=== PATIENT | female | born 1990 | race Caucasian/White ===

== ENCOUNTER 2017-10-14 03:40 | Emergency (ER) | payer OTHER ==
[2017-10-14] MEDS ORDERED: LIDOCAINE 1% MPF 5 ML VIAL ONE (04:09)
--- NOTE | 2017-10-14 05:29 | ER ---
Nurse's Notes [facility] Name: Edelmira Rollins Age: 26 yrs Sex: Female : 1990 Arrival Date: 10/14/2017 Time: 03:41 Bed 5 Private MD: Myron Raza B Diagnosis: Laceration without foreign body of left thumb without damage to nail Presentation: 10/14 03:51 Presenting complaint: Patient states: she cut her finger while spiralling zucchini bb approx 30 mins ago. Transition of care: patient was not received from another setting of care. Onset of symptoms was October 14, 2017. Care prior to arrival: None. 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 - Social history:: Smoking status: Patient uses tobacco products, denies chronic smoking, but will smoke occasionally, Patient uses alcohol, occasionally. Patient/guardian denies using street drugs. Screenin:56 Abuse screen: Denies threats or abuse. Nutritional screening: No deficits noted. ea Tuberculosis screening: No symptoms or risk factors identified. Fall Risk None identified. Assessment: 03:52 General: Appears in no apparent distress. Behavior is calm, cooperative, appropriate ea for age. Pain: Complains of pain in palmar aspect of distal phalanx of right thumb Quality of pain is described as throbbing. Neuro: Level of Consciousness is awake, alert, obeys commands, Oriented to person, place, time, situation. Cardiovascular: Patient's skin is warm and dry. Respiratory: Airway is patent Respiratory effort is even, unlabored, Respiratory pattern is regular, symmetrical. GI: No signs and/or symptoms were reported involving the gastrointestinal system. : No signs and/or symptoms were reported regarding the genitourinary system. EENT: No signs and/or symptoms were reported regarding the EENT system. Derm: Wound noted palmar aspect of distal phalanx of left thumb Wound is laceration. Musculoskeletal: Range of motion: intact in all extremities. Injury Description: Laceration sustained to palmar aspect of distal phalanx of left thumb is clean, 0.5 to 2.5 cm long, a small amount of bleeding noted at this time. 04:30 Reassessment: Patient and/or family updated on plan of care and expected duration. Pain ea level reassessed. Patient is alert, oriented x 3, equal unlabored respirations, skin warm/dry/pink. 05:02 Reassessment: Patient and/or family updated on plan of care and expected duration. Pain ea level reassessed. Patient is alert, oriented x 3, equal unlabored respirations, skin warm/dry/pink. 05:34 Reassessment: Patient and/or family updated on plan of care and expected duration. Pain ea level reassessed. Patient is alert, oriented x 3, equal unlabored respirations, skin warm/dry/pink. Discharge instructions given to patient, verbalized the understanding of instruction. Vital Signs: 03:53 BP 121 / 78; Pulse 81; Resp 18 S; Temp 98.5(O); Pulse Ox 98% on R/A; Weight 106.59 kg bb (R); Height 6 ft. 0 in. (182.88 cm) (R); Pain 3/10; 04:00 BP 116 / 68; Pulse 76; Resp 18 S; Pulse Ox 100% on R/A; ea 05:02 BP 117 / 81; Pulse 70; Resp 18 S; Pulse Ox 100% ; ea 03:53 Body Mass Index 31.87 (106.59 kg, 182.88 cm) ED Course: 03:41 Patient arrived in ED. es 03:41 Myron Raza MD is Private Physician. es 03:51 Sheron Colby, CATRACHITA is Primary Nurse. ea 03:53 Triage completed. bb 03:53 Arm band placed on Patient placed in an exam room, on a stretcher, on pulse oximetry. bb 03:54 Gee Fishman MD is Attending Physician. gs 03:56 Patient has correct armband on for positive identification. Bed in low position. Call ea light in reach. Side rails up X 1. 05:20 Assist provider with laceration repair on palmar aspect of distal phalanx of left thumb ea that was 2.5 cm. or less using sutures. Set up tray. Performed by Gee Fishman MD Dressed with Neosporin, Patient tolerated well. 05:37 Patient did not have IV access during this emergency room visit. ea Administered Medications: 05:12 Drug: Lidocaine (1 %) 5 mg {Note: administered by provider.} Volume: 5 ml; Route: ea Infiltration; Outcome: 05:28 Discharge ordered by . zak 05:36 Discharged to home ambulatory. ea 05:36 Condition: improved 05:36 Discharge instructions given to patient, Instructed on discharge instructions, follow up and referral plans. Demonstrated understanding of instructions, follow-up care. 05:38 Patient left the ED. ea Signatures: Philly Hidalgo Brenda RN RN Sheron Salinas RN RN Gee Rios MD MD gs Corrections: (The following items were deleted from the chart) 03:56 03:52 Injury Description: Laceration sustained to palmar aspect of distal phalanx of ea left thumb is clean, 0.5 to 2.5 cm long, moderate bleeding noted at this time. ea
--- NOTE | 2017-10-14 05:29 | EDPHYS ---
Physician Documentation [facility] Name: Edelmira Rollins Age: 26 yrs Sex: Female : 1990 Arrival Date: 10/14/2017 Time: 03:41 Bed 5 Private MD: Myron Raza B ED Physician Gee Fishman HPI: 10/14 05:24 This 26 yrs old Female presents to ER via Ambulatory with complaints of gs Finger Injury. 05:24 The complaints affect the palmar aspect of distal phalanx of left thumb. Context: gs resulted from sharp object. Onset: The symptoms/episode began/occurred acutely, just prior to arrival. Associated signs and symptoms: Pertinent negatives: numbness distally. Severity of symptoms: At their worst the symptoms were moderate, in the emergency department the symptoms are unchanged. 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 - Social history:: Smoking status: Patient uses tobacco products, denies chronic smoking, but will smoke occasionally, Patient uses alcohol, occasionally. Patient/guardian denies using street drugs. ROS: 05:24 All other systems are negative. gs Exam: 05:24 Musculoskeletal/extremity: Extremities: laceration, ROM: no acute changes, Pulses: are gs normal with no appreciated deficits, the left hand Sensation intact. 05:24 Skin: injury, laceration(s), the wound is approximately 3.5 cm(s), with a depth of .5 cm(s), of the palmar aspect of distal phalanx of left thumb. 05:24 Neuro: Exam negative for acute changes, motor deficits, sensory deficits. Vital Signs: 03:53 BP 121 / 78; Pulse 81; Resp 18 S; Temp 98.5(O); Pulse Ox 98% on R/A; Weight 106.59 kg bb (R); Height 6 ft. 0 in. (182.88 cm) (R); Pain 3/10; 04:00 BP 116 / 68; Pulse 76; Resp 18 S; Pulse Ox 100% on R/A; ea 05:02 BP 117 / 81; Pulse 70; Resp 18 S; Pulse Ox 100% ; ea 03:53 Body Mass Index 31.87 (106.59 kg, 182.88 cm) bb Laceration: 05:24 Wound Repair of 4cm ( 1.6in ) subcutaneous laceration to palmar aspect of distal gs phalanx of left thumb. Distal neuro/vascular/tendon intact. Anesthesia: Local anesthetic administered with 2 mls of 1% lidocaine. Wound prep: Moderate cleansing. Skin closed with 4 5-0 Prolene using simple sutures and sterile technique. Dressed with 4x4's. Patient tolerated well. MDM: 04:07 Patient medically screened. 05:24 Data reviewed: vital signs, nurses notes. Administered Medications: 05:12 Drug: Lidocaine (1 %) 5 mg {Note: administered by provider.} Volume: 5 ml; Route: ea Infiltration; Disposition: 10/14/17 05:28 Discharged to Home. Impression: Laceration without foreign body of left thumb without damage to nail. - Condition is Stable. - Discharge Instructions: Laceration Care, Adult. - Medication Reconciliation Form, Thank You Letter, Antibiotic Education, Prescription Opioid Use form. - Follow up: Private Physician; When: 7 - 10 days; Reason: Staple/Suture removal. Signatures: Ann-Marie Stewart RN Sheron Messina RN RN ea Starr, Gregory, MD MD
== END 2017-10-14 05:38 | disposition home or self-care (01) ==
LOC: ER 03:40
PROC: 0JQK0ZZ Repair Left Hand Subcutaneous Tissue and Fascia, Open Approach (ICD-10-PCS; principal; 2017-10-14)
DX: S61.012A Laceration without foreign body of left thumb without damage to nail, initial encounter (principal); W26.9XXA Contact with unspecified sharp object(s), initial encounter; Y93.9 Activity, unspecified; Y92.9 Unspecified place or not applicable; Z72.0 Tobacco use
CPT/HCPCS: 99283

== ENCOUNTER 2022-03-17 00:25 | Emergency (ER) | payer OTHER ==
--- OUTSIDE RECORDS SUMMARY | 2022-03-17 00:29 | XMS REPORT | Continuity of Care Document ---
:1990 Author Organization [facility] t Address [address] [place] [address] Care Team Providers Name Role Phone Beth Roman Primary Care Physician EV JOINER Attending Clinician Unavailable Gavin RN, Glenna Attending Clinician Unavailable ANABELLA SULLIVAN Attending Clinician Unavailable Beth Roman Attending Clinician BETH BELL Attending Clinician Unavailable Payers Payer Name Policy Type Policy Number Effective Date Expiration Date S ource Problems Condition Condition Condition Status Onset Resolution Last Treating Co mments Source Name Details Category Date Date Treatment Clinician Date Morbid Morbid Disease Active Univers obesity obesity 6-08 [place] 00 [place] of Branch 40.0-49.9 40.0-49.9 Chronic Chronic Disease Active 2018-07 Univers bilateral bilateral 0-16 ity of thoracic thoracic 00:00: [place] back pain back pain 00 [facility] Branch Abdominal Abdominal Disease Active 2018-07 Uni vers bloating bloating 0-08 ity of 00:00: [address] Change in Change in Disease Active 2018-07 Uni vers bowel bowel 0-08 ity of habits habits 00:00: [address] Seasonal Seasonal Disease Active Unive rs allergic allergic ity of rhinitis rhinitis [facility] Anxiety Anxiety Disease Active Univers ity of [facility] Depression Depression Disease Active U nivers ity of [facility] Allergies, Adverse Reactions, Alerts Allergy Allergy Status Severity Reaction(s) Onset Inactive Treating Comm ents Source Name Type Date Date Clinician NO KNOWN Drug Active Univers ALLERGIE Class ity of S [facility] Social History Social Habit Start Date Stop Date Quantity Comments Source History of Cigarette Smoker Universi ty of tobacco use [facility] Exposure to 2022-01-03 2022-01-13 Not sure University of SARS-CoV-2 00:00:00 09:59:00 [facility] (event) Branch Tobacco use and 2022-01-13 2022-01-13 Smokeless tobacco Un iversity of exposure 00:00:00 00:00:00 non-user [facility] Alcohol intake 2022-01-13 2022-01-13 Current drinker Unive rsity of 00:00:00 00:00:[address] [facility] (finding) [place] Alcohol Comment 2020-07-25 2020-07-25 rare Universit y of 00:00:00 00:00:00 [place] [facility] History SDOH 2020-07-25 2020-07-25 99 University o f Alcohol Frequency 00:00:00 00:00:00 [facility] edical Branch History SDOH 2020-07-25 2020-07-25 99 University o f Alcohol Std 00:00:00 00:00:00 [place] [facility] Branch History SDOH 2020-07-25 2020-07-25 99 University o f Alcohol Binge 00:00:00 00:00:00 [facility] al Branch Sex Ass[birth year] At [birth year] Universit y of 00:00:00 00:00:00 [facility] Smoking Status Start Date Stop Date Source Ex-smoker 2022-01-13 00:00:00 2022-01-13 00:00:00 Universi ty of [facility] Medications Ordered Filled Start Stop Current Ordering Indication Dosage Frequency Signature Comments Components Source Medication Medication Date Date Medication? Clinician (SIG) Name Name escitalopra Yes Univer s m oxalate 7-04 ity of 10 mg 00:00: [place] tablet 00 Medical Branch risperiDONE Yes Univer s 0.5 mg 7-04 ity of tablet 00:00: Medical Branch escitalopra Yes Univer s m oxalate 7-04 ity of 10 mg 00:00: [place] tablet 00 Medical Branch risperiDONE 2021- Yes Univer s 0.5 mg 7-04 ity of tablet 00:00: [facility] Branch escitalopra Yes Univer s m oxalate 7-04 ity of 10 mg 00:00: [place] tablet 00 Medical Branch risperiDONE 0 Yes Univer s 0.5 mg 7-04 ity of tablet 00:00: [place] 00 [facility] Immunizations Ordered Filled Immunization Date Status Comments [facility] e Immunization Name Name Influenza Virus 2021-07-25 Completed Universit y of Vaccine Quad IM, 00:00:00 [place] Me dical Preserv and ABX Branch Free 6 MO-64 YRS Influenza Virus 2021-07-25 Completed Universit y of Vaccine Quad IM, 00:00:00 [place] Me dical Preserv and ABX Branch Free 6 MO-64 YRS Influenza Virus 2021-07-25 Completed Universit y of Vaccine Quad IM, 00:00:00 [facility] dical Preserv and ABX Branch Free 6 MO-64 YRS SARS-COV-2 COVID-19 2021-05-09 Completed Unive rsity of PFIZER VACCINE 00:00:00 [facility] SARS-COV-2 COVID-19 2021-05-09 Completed Unive rsity of PFIZER VACCINE 00:00:00 [facility] SARS-COV-2 COVID-19 2021-05-09 Completed Unive rsity of PFIZER VACCINE 00:00:00 [facility] SARS-COV-2 COVID-19 2021-04-17 Completed Unive rsity of PFIZER VACCINE 00:00:00 [facility] SARS-COV-2 COVID-19 2021-04-17 Completed Unive rsity of PFIZER VACCINE 00:00:00 [facility] SARS-COV-2 COVID-19 2021-04-17 Completed Unive rsity of PFIZER VACCINE 00:00:00 [facility] DTAP 2020-01-18 Completed University of 00:00:00 [facility] DTAP 2020-01-18 Completed University of 00:00:00 [facility] DTAP 2020-01-18 Completed University of 00:00:00 [facility] Influenza Virus 2019-07-11 Completed Universit y of Vaccine Quad .5 mL 00:00:00 [facility] IM 6+ MO Branch Influenza Virus 2019-07-11 Completed Universit y of Vaccine Quad .5 mL 00:00:00 [facility] IM 6+ MO Branch Influenza Virus 2019-07-11 Completed Universit y of Vaccine Quad .5 mL 00:00:00 [facility] 6+ MO Branch Vital Signs Vital Name Observation Time Observation Value Comments Source Systolic blood 2022-01-13 15:11:00 112 mm[Hg] Univer sity [facility] pressure [facility] Diastolic blood 2022-01-13 15:11:00 77 [facility]Hg[facility] Heart rate 2022-01-13 15:11:00 85 /min [facility] Body height 2022-01-13 15:11:00 180.3 cm [facility] Body weight 2022-01-13 15:11:00 131.226 kg [facility] BMI 2022-01-13 15:11:00 40.35 kg/m2 [facility] Oxygen saturation 2022-01-13 15:11:00 100 /min [facility] in Arterial blood Medical Br anch by Pulse oximetry Procedures This patient has no known procedures. Encounters Start End Encounter Admission Attending Care Care Encounter Source Date/Time Date/Time Type Type Clinicians Facility Department ID 2022-07-28 2022-07-28 Outpatient Tavares JOINER [facility] [id number] Univers 13:30:00 13:30:00 EV [id number] [facility] 2022-03-16 2022-03-16 Nurse AZRA Alonso [id number] Univers 00:00:00 00:00:00 Triage Glenna KHANNA [id number] it y of [facility] [id number] Luis as [id number] [address] 2022-02-13 2022-02-13 Outpatient Tavares SULLIVAN [facility] [id number] Univers 13:45:00 13:45:00 ANABELLA [id number] [facility] 2022-02-13 2022-02-13 Outpatient Tavares SULLIVAN [facility] [id number] Univers 13:45:00 13:45:00 ANABELLA [facility] 2022-01-13 2022-01-13 Office Davina [facility] [id number] Univers 10:00:00 10:38:[address] [facility] [id number] it y of [place] [id number] Luis as SUNIL?BLEA [id number] [place] [address] MEDICAL OFFICE BUILDING 2022-01-13 2022-01-13 Outpatient Tavares BELL [facility] [id number] Univers 10:00:00 10:38:36 BETH streeter [facility] Results This patient has no known results.
--- NOTE | 2022-03-17 00:44 | EDPHYS ---
Physician Documentation [facility] Name: Edelmira Rollins Age: 31 yrs Sex: Female : 1990 Arrival Date: 03/17/2022 Time: 00:30 Bed 15 Private MD: ED Physician Luis Antonio Gleason HPI: 03/17 00:51 This 31 yrs old Female presents to ER via Ambulatory with complaints of Ear Pain. snw 00:51 The patient presents with a fullness, pain, swelling, tenderness. The complaints affect snw the right ear. Onset: The symptoms/episode began/occurred gradually, 3 day(s) ago, and became worse and became persistent. Associated signs and symptoms: The patient has no apparent associated signs or symptoms. Severity of symptoms: At their worst the symptoms were moderate severe in the emergency department the symptoms are unchanged. The patient has experienced similar episodes in the past. The patient has not recently seen a physician. pt states [place] the beach and feels that is when her ear became infected.. Historical: - Allergies: 00:42 No Known Allergies; ha1 - Immunization history:: Adult Immunizations up to date. - Social history:: Smoking status: Patient reports the use of cigarette tobacco products, denies chronic smoking, but will smoke occasionally. ROS: 00:51 Constitutional: Negative for fever, chills, and weight loss, Eyes: Negative for injury, snw pain, redness, and discharge, Neck: Negative for injury, pain, and swelling, Cardiovascular: Negative for chest pain, palpitations, and edema, Respiratory: Negative for shortness of breath, cough, wheezing, and pleuritic chest pain, Abdomen/GI: Negative for abdominal pain, nausea, vomiting, diarrhea, and constipation, Back: Negative for injury and pain, : Negative for injury, bleeding, discharge, and swelling, MS/Extremity: Negative for injury and deformity, Skin: Negative for injury, rash, and discoloration, Neuro: Negative for headache, weakness, numbness, tingling, and seizure, Psych: Negative for depression, anxiety, suicide ideation, homicidal ideation, and hallucinations. 00:51 ENT: Positive for ear pain. Exam: 00:50 Constitutional: This is a well developed, well nourished patient who is awake, alert, snw and in no acute distress. Head/Face: Normocephalic, atraumatic. Eyes: Pupils equal round and reactive to light, extra-ocular motions intact. Lids and lashes normal. Conjunctiva and sclera are non-icteric and not injected. Cornea within normal limits. Periorbital areas with no swelling, redness, or edema. Neck: Trachea midline, no thyromegaly or masses palpated, and no cervical lymphadenopathy. Supple, full range of motion without nuchal rigidity, or vertebral point tenderness. No Meningismus. Chest/axilla: Normal chest wall appearance and motion. Nontender with no deformity. No lesions are appreciated. Cardiovascular: Regular rate and rhythm with a normal S1 and S2. No gallops, murmurs, or rubs. Normal PMI, no JVD. No pulse deficits. Respiratory: Lungs have equal breath sounds bilaterally, clear to auscultation and percussion. No rales, rhonchi or wheezes noted. No increased work of breathing, no retractions or nasal flaring. Abdomen/GI: Soft, non-tender, with normal bowel sounds. No distension or tympany. No guarding or rebound. No evidence of tenderness throughout. Back: No spinal tenderness. No costovertebral tenderness. Full range of motion. Skin: Warm, dry with normal turgor. Normal color with no rashes, no lesions, and no evidence of cellulitis. MS/ Extremity: Pulses equal, no cyanosis. Neurovascular intact. Full, normal range of motion. Neuro: Awake and alert, GCS 15, oriented to person, place, time, and situation. Cranial nerves II-XII grossly intact. Motor strength 5/5 in all extremities. Sensory grossly intact. Cerebellar exam normal. Normal gait. Psych: Awake, alert, with orientation to person, place and time. Behavior, mood, and affect are within normal limits. 00:50 ENT: External ear(s): are unremarkable, Ear canal(s): purulent discharge, swelling, that is moderate, of the right canal, Nose: is normal, Mouth: is normal, Voice: is normal. Vital Signs: 00:39 BP 112 / 78; Pulse 97; Resp 16; Temp 98.5; Pulse Ox 100% on R/A; Weight 127.01 kg; ha1 Height 6 ft. (182.88 cm); Pain 7/10; 00:39 Body Mass Index 37.97 (127.01 kg, 182.88 cm) ha1 MDM: 00:35 Patient medically screened. snw 00:50 Data reviewed: vital signs, nurses notes. Data interpreted: Pulse oximetry: on room air snw is 100 %. Interpretation: normal. Counseling: I had a detailed discussion with the patient and/or guardian regarding: the historical points, exam findings, and any diagnostic results supporting the discharge/admit diagnosis, the need for outpatient follow up, to return to the emergency department if symptoms worsen or persist or if there are any questions or concerns that arise at home. Response to treatment: the patient's symptoms have mildly improved after treatment. Special discussion: Based on the history and exam findings, there is no indication for further emergent testing or inpatient evaluation. I discussed with the patient/guardian the need to see the primary care provider for further evaluation of the symptoms. Administered Medications: 00:50 Not Given (Other Intervention Used): Cortisporin (bacitracin-polymix snw X-takziden-toeufkjfnrmfgn) Ointment 1 application Ophthalmic once; right ear 00:56 Drug: Cortisporin (neomycin-polymyxin) Drops 4 drops Route: Otic; Site: right ear; ke1 01:04 Follow up: Response: No adverse reaction; Medication administered at discharge. ke1 00:57 Drug: Ketorolac 60 mg Route: IM; Site: right deltoid; ke1 01:04 Follow up: Response: Medication administered at discharge. ke1 Disposition: 04:12 Co-signature as Attending Physician, Luis Antonio CONCEPCION was immediately available on-site ms3 in the Emergency Department for consultation in the care of the patient. Disposition Summary: 03/17/22 00:44 Discharge Ordered Location: Home snw Condition: Stable snw Diagnosis - Unspecified otitis externa, right ear snw Followup: snw - With: Emergency Department - When: As needed - Reason: Worsening of condition Followup: snw - With: Private Physician - When: 2 - 3 days - Reason: Recheck today's complaints, Continuance of care, Re-evaluation by your physician Discharge Instructions: - Discharge Summary Sheet snw - Ear Drops, Adult snw - Otitis Externa snw Forms: - Medication Reconciliation Form snw - Thank You Letter snw - Antibiotic Education snw - Prescription Opioid Use snw Prescriptions: - Cortisporin-TC 3.3-3-10-0.5 mg/mL Otic Suspension - instill 4 drops by OTIC route every 6 hours; 1 bottle; Refills: 0, Product snw Selection Permitted - Tramadol 50 mg Oral Tablet - take 1 tablet by ORAL route every 8 hours as needed; 12 tablet; Refills: 0, snw Product Selection Permitted Signatures: Saadia Musa, ROTARY DRILLER HELPER-C ROTARY DRILLER HELPER-Csnw Luis Antonio Gleason DO DO ms3 Uli Ignacio, RN RN ke1 Alise Montaño RN RN ha1
--- NOTE | 2022-03-17 00:44 | ER ---
Nurse's Notes [facility] Name: Edelmira Rollins Age: 31 yrs Sex: Female : 1990 Arrival Date: 03/17/2022 Time: 00:30 Bed 15 Private MD: Diagnosis: Unspecified otitis externa, right ear Presentation: 03/17 00:39 Chief complaint: Patient states: I have had this ear ache since yesterday. I have been ha1 taking Tylenol but it is not helping me with the pain. Coronavirus screen: Vaccine status: Patient reports receiving the 2nd dose of the covid vaccine. [employer]. Ebola Screen: No symptoms or risks identified at this time. Initial Sepsis Screen: Does the patient meet any 2 criteria? No. Patient's initial sepsis screen is negative. Does the patient have a suspected source of infection? No. Patient's initial sepsis screen is negative. Risk Assessment: Do you want to hurt yourself or someone else? Patient reports no desire to harm self or others. Onset of symptoms was March 17, 2022. 00:39 Method Of Arrival: Ambulatory ha1 00:39 Acuity: STEPHANIE 4 ha1 Triage Assessment: 00:42 General: Appears in no apparent distress. Behavior is calm, cooperative. Pain: ha1 Complains of pain in ear pain. EENT:. Historical: - Allergies: 00:42 No Known Allergies; ha1 - Immunization history:: Adult Immunizations up to date. - Social history:: Smoking status: Patient reports the use of cigarette tobacco products, denies chronic smoking, but will smoke occasionally. Screenin:40 Abuse screen: Denies threats or abuse. Nutritional screening: No deficits noted. ke1 Tuberculosis screening: No symptoms or risk factors identified. Fall Risk None identified. Assessment: 00:40 Pain: Complains of pain in right ear Pain currently is 7 out of 10 on a pain scale. at ke1 worst was 7 out of 10 on a pain scale. level that patient reports is acceptable is 3 out of 10 on a pain scale. Neuro: Level of Consciousness is awake, alert, Oriented to person, place, time, situation. Respiratory: Respiratory effort is even, unlabored, Respiratory pattern is regular, symmetrical. Derm: Skin is intact, ON R EAR. Vital Signs: 00:39 BP 112 / 78; Pulse 97; Resp 16; Temp 98.5; Pulse Ox 100% on R/A; Weight 127.01 kg; ha1 Height 6 ft. (182.88 cm); Pain 7/10; 00:39 Body Mass Index 37.97 (127.01 kg, 182.88 cm) ha1 ED Course: 00:30 Patient arrived in ED. ag3 00:34 Uli Ignacoi RN is Primary Nurse. ke1 00:35 Saadia Musa FNP-C is PHCP. snw 00:35 Luis Antonio Gleason DO is Attending Physician. snw 00:40 Bed in low position. Call light in reach. ke1 00:42 Triage completed. ha1 00:42 Arm band placed on right wrist. ha1 01:05 No provider procedures requiring assistance completed. Patient did not have IV access ke1 during this emergency room visit. Administered Medications: 00:50 Not Given (Other Intervention Used): Cortisporin (bacitracin-polymix snw [id number]) Ointment 1 application Ophthalmic once; right ear 00:56 Drug: Cortisporin (neomycin-polymyxin) Drops 4 drops Route: Otic; Site: right ear; ke1 01:04 Follow up: Response: No adverse reaction; Medication administered at discharge. ke1 00:57 Drug: Ketorolac 60 mg Route: IM; Site: right deltoid; ke1 01:04 Follow up: Response: Medication administered at discharge. ke1 Medication: 01:05 VIS not applicable for this client. ke1 Outcome: 00:44 Discharge ordered by . snw 01:05 Discharged to home ambulatory. ke1 01:05 Condition: good 01:05 Discharge instructions given to patient. 01:05 Patient left the ED. ke1 Signatures: Saadia Musa FNP-C FNP-Dionne Chavez ag3 Uli Ignacio RN RN ke1 Alise Montaño RN RN ha1
[2022-03-17] MEDS ORDERED: NEOMY/POLY/HC 1% OTIC DROPS ONE (00:57)
[2022-03-17] MEDS ORDERED: KETOROLAC 30 MG/ML INJ ONE (00:57)
[2022-03-17 03:59] VITALS: BP 112/78; TEMP 98.5; O2SAT 100
== END 2022-03-17 01:05 | disposition home or self-care (01) ==
LOC: ER 00:25
DX: H60.91 Unspecified otitis externa, right ear (principal); F17.210 Nicotine dependence, cigarettes, uncomplicated
CPT/HCPCS: 96372; 99283

== ENCOUNTER 2024-06-06 12:34 | Emergency (ER) | payer OTHER ==
--- OUTSIDE RECORDS SUMMARY | 2024-06-06 12:39 | XMS REPORT | Continuity of Care Document ---
Author Name Unknown Address [address] [facility] [address] [place] [address] [facility] [address] [facility]. [address] [place] [address] Care Team Providers Care Category Consultant Name Role Phone BETH GHOSH Primary Care Physician Unavailab VINNY Orourke Attending Clinician Unavailable SIMON HUNTER Attending Clinician UnavailGISELE Rader Attending Clinician UnaDIVINE Regan Attending Clinician Unavailable DIMITRI CATHLEEN-ANNE Attending Clinician Unavailable AZRA ISRAEL Attending Clinician Unavailable BETH BOLDEN Attending Clinician Unavailab radha DE SANTIAGO Attending Clinician Unavailable DIPIKA CROW Attending Clinician Unavailable BETH PATEL Attending Clinician Unavailab RENEE Ham Attending Clinician Unavailable RG AGUILAR Attending Clinician Unavailable FELIPE HOYT Attending Clinician UnavailFELIPE Lopez Attending Clinician UnavailEarnestine Hernández Attending Clinician [phone] Doctor Unassigned, [place] Attending Clinician U EARNESTINE Pena Attending Clinician Unavailable Denis Copeland MD Attending Clinician [phone] Unknown, Attending Attending Clinician Unavailab DENIS Beltran Attending Clinician Unavailable Renee Joiner PA-C Attending Clinician [phone] Glenna Alonso RN Attending Clinician Unavailable ANABELLA SULLIVAN Attending Clinician Unavailable BETH GHOSH Attending Clinician Unavailable Beth Roman Attending Clinician [phone], [facility] Attending Clinician Unavailable Bon DOMÍNGUEZ, Madalyn Lawrence Attending Clinician UnavailNelly Redding Attending Clinician NELLY REDDING Attending Clinician UnavailNELL Rangel Attending Clinician Unavailable KAIT DIETRICH Attending Clinician Unavailable KAIT DIETRICH Admitting Clinician Unavailable Payers Payer Name Policy Type Policy Number Effective Date Expirati on Date Source [employer] [id number] 2019 00:00:00 [facility] [id number] 2019 00:00:00 [facility] HORACIO MARTINO COPAY FOCUS 9 [id number] 2023 00:00:00 [facility] HORACIO 1 [id number] 2023 00:00:00 [place]ICA[place] [id number] 2019 00:00:00 Problems Condition Name Condition Details Condition Category Status Onset Date Resolution Date Last Treatment Date Treating Clinician Comments Source Well adult exam Well adult exam Disease Active 09-09 00:00: 00 Mana marquez Family history of diabetes mellitus Family history of diabetes mellitus Disease Active 09-09 00:00: 00 Mana marquez Class 3 severe obesity due to excess calories without serious comorbidit y with body mass index (BMI) of 40.0 to 44.9 in adult Class 3 severe obesity due to excess calories without serious comorbidit y with body mass index (BMI) of 40.0 to 44.9 in adult Disease Active 09-09 00:00: 00 Mana marquez Missed menses Missed menses Disease Active 10-29 00:00: 00 [facility] PMDD (premenstr ual dysphoric disorder) PMDD (premenstr ual dysphoric disorder) Disease Active 10-29 00:00: 00 [facility] BMI 40.0-44.9, adult BMI 40.0-44.9, adult Disease Active 12-11 00:00: 00 [facility] Chronic bilateral thoracic back pain Chronic bilateral thoracic back pain Disease Active 2018-07 0-16 00:00: 00 [facility] Abdominal bloating Abdominal bloating Disease Active 2018-07 008 00:00: 00 [facility] Change in bowel habits Change in bowel habits Disease Active 2018-07 008 00:00: 00 [facility] Change in bowel habits Change in bowel habits Disease Active 2018-07 008 00:00: 00 [facility] Seasonal allergic rhinitis Seasonal allergic rhinitis Disease Active [facility] Anxiety Anxiety Disease Active [facility] Depression Depression Disease Active [facility] Allergies, Adverse Reactions, Alerts Allergy Name Allergy Type Status Severity Reaction(s) Onset Date Inactive Date Treating Clinician Comments Source NO KNOWN ALLERGIE S Drug Class Active [facility] Social History Social Habit Start Date Stop Date Quantity Comments Source Sexual orientation 2023-07-28 15:58:27 Mana Bill - External Gender identity [facility] Tobacco use and exposure 2024-02-10 00:00:00 2024-02-10 00:00:00 Smokeless tobacco non-user Mana Bill - External Alcoholic beverage intake 2024-02-10 00:00:00 2024-02-10 00:00:00 Current drinker of alcohol (finding) Mana Bill - External History of Social function 2024-02-10 00:00:00 2024-02-10 00:00:00 Mana Bill - External Alcohol intake 2023-09-10 00:00:00 2023-09-10 00:00:00 Current drinker of alcohol (finding) Mana Bill - External Alcohol Comment 2023-07-31 00:00:00 2023-07-31 00:00:00 1 time a month Mana Bill - External Exposure to SARS-CoV-2 (event) 2022-10-19 00:00:00 2022-10-29 10:24:00 Not sure [facility] History SDOH Social Connections Phone 2022-09-19 00:00:00 2022-09-19 00:00:00 4 [facility] History SDOH Social Connections Get Together 2022-09-19 00:00:00 2022-09-19 00:00:00 2 [facility] History SDOH Social Connections Uatsdin 2022-09-19 00:00:00 2022-09-19 00:00:00 98 [facility] SDOH Social Connections Membership 2022-09-19 00:00:00 2022-09-19 00:00:00 2 [facility] SDOH Social Connections Meetings 2022-09-19 00:00:00 2022-09-19 00:00:00 98 [facility] SDOH Social Connections Living 2022-09-19 00:00:00 2022-09-19 00:00:00 5 [facility] SDOH Physical Activity DPW 2022-09-19 00:00:00 2022-09-19 00:00:00 2 [facility] SDOH Physical Activity MPS 2022-09-19 00:00:00 2022-09-19 00:00:00 3 [facility] SDOH Stress 2022-09-19 00:00:00 2022-09-19 00:00:00 2 [facility] SDOH Financial 2022-09-19 00:00:00 2022-09-19 00:00:00 5 [facility] SDOH Food Worry 2022-09-19 00:00:00 2022-09-19 00:00:00 1 [facility] History SDOH Food Scarcity 2022-09-19 00:00:00 2022-09-19 00:00:00 1 [facility] History SDOH Transport Med 2022-09-19 00:00:00 2022-09-19 00:00:00 2 [facility] SDOH Transport Non-Med 2022-09-19 00:00:00 2022-09-19 00:00:00 2 [facility] History SDOH Housing Unable to Pay 2022-09-19 00:00:00 2022-09-19 00:00:00 2 [facility] History SDOH Housing Places Lived 2022-09-19 00:00:00 2022-09-19 00:00:00 1 [facility] History SDOH Housing Homeless Last Year 2022-09-19 00:00:00 2022-09-19 00:00:00 2 [facility] History SDOH Alcohol Frequency 2022-09-19 00:00:00 2022-09-19 00:00:00 2 [facility] History SDOH Alcohol Std Drinks 2022-09-19 00:00:00 2022-09-19 00:00:00 1 [facility] History SDOH Alcohol Binge 2022-09-19 00:00:00 2022-09-19 00:00:00 1 [facility] History of tobacco use 2021-09-03 00:00:00 Cigarette Smoker [facility] Sex assigned at 1990 00:00:00 1990 00:00:00 Binta Layton Smoking Status Start Date Stop Date Source Tobacco smoking consumption unknown Mana Layton Never smoked tobacco Mana Layton Occasional tobacco smoker 2022-07-28 00:00:00 [facility] Ex-smoker 2022-01-13 00:00:00 2022-01-13 00:00:00 [facility] Medications Ordered Medication Name Filled Medication Name Start Date Stop Date Current Medication? Ordering Clinician Indication Dosage Frequency Signature (SIG) Comments Components Source Fluoxetine HCl (PROzac) 10 MG oral Capsule 02-09 00:00: 00 03-12 04:59 :00 No [id number] 20mg QD Take 2 capsules (20 mg total) by mouth daily. Mana marquez Topiramate 25 MG oral Tablet 01-28 00:00: 00 Yes [id number] 104 For first week take 1 tablet at night then increase to one twice a day. Mana marquez Valacyclovi r HCl 1 g oral Tablet 01-08 00:00: 00 01-16 04:59 :00 No [id number] 1000mg Q.[id number] 3D Take 1 tablet (1,000 mg total) by mouth 3 times daily for 7 days. Mana marquez Sulfacetami de Sodium, Acne, 10 % apply externally Lotion 10-29 00:00: 01-08 00:00 :00 No Apply twice a day to break-out prone areas on cheeks / jaw. Mana marquez Escitalopra m Oxalate 10 MG oral Tablet 10-29 00:00: 00 01-08 00:00 :00 No [id number] 10mg QD Take 1 tablet (10 mg total) by mouth daily. Mana marquez hydrOXYzine HCl 25 MG oral Tablet 10-29 00:00: 00 01-08 00:00 :00 No [id number] 25mg Q.[id number] 3D Take 1 tablet (25 mg total) by mouth 3 times daily as needed for anxiety. Mana marquez Amoxicillin -Pot Clavulanate 875-125 MG oral Tablet 07-25 00:00: 00 08-02 05:59 :00 No [id number] 1{tbl} Take 1 tablet by mouth 2 times daily for 7 days. Mana marquez SERTRALINE 50 mg tablet 11-25 00:00: 00 Yes [id number] TAKE 1 TABLET BY MOUTH EVERY DAY IN THE MORNING [facility] drospirenon e-ethinyl estradioL (LORA, 28,) 3-0.02 mg per tablet 10-29 00:00: 00 Yes [id number] 1{tbl} Take 1 tablet by mouth in the morning. [facility] SERTraline (ZOLOFT) 50 mg tablet 10-29 00:00: 00 11-25 00:00 :00 No [id number] 50mg Take 1 tablet by mouth in the morning. [facility] neomycin-po lymyxin-hyd rocortisone otic solution 3-14 00:00: 00 10-29 00:00 :00 No [id number] 4[drp] Place 4 Drops in right ear 4 (four) times daily. [facility] SERTraline (ZOLOFT) 25 mg tablet 23 00:00: 00 10-29 00:00 :00 No [id number] 25mg Take 1 tablet by mouth in the morning. [facility] risperiDONE 0.5 mg tablet 01-06 00:00: 00 09-19 00:00 :00 No [facility] escitalopra m oxalate 10 mg tablet 01-06 00:00: 00 07-28 00:00 :00 No [facility] Immunizations Ordered Immunization Name Filled Immunization Name Date Status Comments Source Influenza Virus Vaccine Quad IM, Preserv and ABX Free 6 MO-64 YRS 2021-07-25 00:00:00 Completed [facility] Influenza Virus Vaccine Quad IM, Preserv and ABX Free 6 MO-64 YRS 2021-07-25 00:00:00 Completed [facility] Influenza Virus Vaccine Quad IM, Preserv and ABX Free 6 MO-64 YRS 2021-07-25 00:00:00 Completed [facility] Influenza Virus Vaccine Quad IM, Preserv and ABX Free 6 MO-64 YRS 2021-07-25 00:00:00 Completed [facility] Influenza Virus Vaccine Quad IM, Preserv and ABX Free 6 MO-64 YRS 2021-07-25 00:00:00 Completed [facility] Influenza Virus Vaccine Quad IM, Preserv and ABX Free 6 MO-64 2021-07-25 00:00:00 Completed [facility] Influenza Virus Vaccine Quad IM, Preserv and ABX Free 6 MO-64 2021-07-25 00:00:00 Completed [facility] Influenza Virus Vaccine Quad IM, Preserv and ABX Free 6 MO-64 YRS 2021-07-25 00:00:00 Completed [facility] Influenza Virus Vaccine Quad IM, Preserv and ABX Free 6 MO-64 YRS 2021-07-25 00:00:00 Completed [facility] Influenza Virus Vaccine Quad IM, Preserv and ABX Free 6 MO-64 2021-07-25 00:00:00 Completed [facility] Influenza Virus Vaccine Quad IM, Preserv and ABX Free 6 MO-64 2021-07-25 00:00:00 Completed [facility] Influenza Virus Vaccine Quad IM, Preserv and ABX Free 6 MO-64 2021-07-25 00:00:00 Completed [facility] Influenza Virus Vaccine Quad IM, Preserv and ABX Free 6 MO-64 YRS 2021-07-25 00:00:00 Completed [facility] SARS-COV-2 COVID-19 PFIZER VACCINE 2021-05-09 00:00:00 Completed [facility] SARS-COV-2 COVID-19 PFIZER VACCINE 2021-05-09 00:00:00 Completed [facility] SARS-COV-2 COVID-19 PFIZER VACCINE 2021-05-09 00:00:00 Completed [facility] SARS-COV-2 COVID-19 PFIZER VACCINE 2021-05-09 00:00:00 Completed [facility] SARS-COV-2 COVID-19 PFIZER VACCINE 2021-05-09 00:00:00 Completed [facility] SARS-COV-2 COVID-19 PFIZER VACCINE 2021-05-09 00:00:00 Completed [facility] SARS-COV-2 COVID-19 PFIZER VACCINE 2021-05-09 00:00:00 Completed [facility] SARS-COV-2 COVID-19 PFIZER VACCINE 2021-05-09 00:00:00 Completed [facility] SARS-COV-2 COVID-19 PFIZER VACCINE 2021-05-09 00:00:00 Completed [facility] SARS-COV-2 COVID-19 PFIZER VACCINE 2021-05-09 00:00:00 Completed [facility] SARS-COV-2 COVID-19 PFIZER VACCINE 2021-05-09 00:00:00 Completed [facility] SARS-COV-2 COVID-19 PFIZER VACCINE 2021-05-09 00:00:00 Completed [facility] SARS-COV-2 COVID-19 PFIZER VACCINE 2021-05-09 00:00:00 Completed [facility] SARS-COV-2 COVID-19 PFIZER VACCINE 2021-04-17 00:00:00 Completed [facility] SARS-COV-2 COVID-19 PFIZER VACCINE 2021-04-17 00:00:00 Completed [facility] SARS-COV-2 COVID-19 PFIZER VACCINE 2021-04-17 00:00:00 Completed [facility] SARS-COV-2 COVID-19 PFIZER VACCINE 2021-04-17 00:00:00 Completed [facility] SARS-COV-2 COVID-19 PFIZER VACCINE 2021-04-17 00:00:00 Completed [facility] SARS-COV-2 COVID-19 PFIZER VACCINE 2021-04-17 00:00:00 Completed [facility] SARS-COV-2 COVID-19 PFIZER VACCINE 2021-04-17 00:00:00 Completed [facility] SARS-COV-2 COVID-19 PFIZER VACCINE 2021-04-17 00:00:00 Completed [facility] SARS-COV-2 COVID-19 PFIZER VACCINE 2021-04-17 00:00:00 Completed [facility] SARS-COV-2 COVID-19 PFIZER VACCINE 2021-04-17 00:00:00 Completed [facility] SARS-COV-2 COVID-19 PFIZER VACCINE 2021-04-17 00:00:00 Completed [facility] SARS-COV-2 COVID-19 PFIZER VACCINE 2021-04-17 00:00:00 Completed [facility] SARS-COV-2 COVID-19 PFIZER VACCINE 2021-04-17 00:00:00 Completed [facility] DTAP 2020-01-18 00:00:00 Completed [facility] DTAP 2020-01-18 00:00:00 Completed [facility] DTAP 2020-01-18 00:00:00 Completed [facility] DTAP 2020-01-18 00:00:00 Completed [facility] DTAP 2020-01-18 00:00:00 Completed [facility] DTAP 2020-01-18 00:00:00 Completed [facility] DTAP 2020-01-18 00:00:00 Completed [facility] DTAP 2020-01-18 00:00:00 Completed [facility] DTAP 2020-01-18 00:00:00 Completed [facility] DTAP 2020-01-18 00:00:00 Completed [facility] DTAP 2020-01-18 00:00:00 Completed [facility] DTAP 2020-01-18 00:00:00 Completed [facility] DTAP 2020-01-18 00:00:00 Completed [facility] Influenza Virus Vaccine Quad .5 mL IM 6+ MO 2019-07-11 00:00:00 Completed [facility] Influenza Virus Vaccine Quad .5 mL IM 6+ MO 2019-07-11 00:00:00 Completed [facility] Influenza Virus Vaccine Quad .5 mL IM 6+ MO 2019-07-11 00:00:00 Completed [facility] Influenza Virus Vaccine Quad .5 mL IM 6+ MO 2019-07-11 00:00:00 Completed [facility] Influenza Virus Vaccine Quad .5 mL IM 6+ MO 2019-07-11 00:00:00 Completed [facility] Influenza Virus Vaccine Quad .5 mL IM 6+ MO 2019-07-11 00:00:00 Completed [facility] Influenza Virus Vaccine Quad .5 mL IM 6+ MO 2019-07-11 00:00:00 Completed [facility] Influenza Virus Vaccine Quad .5 mL IM 6+ MO 2019-07-11 00:00:00 Completed [facility] Influenza Virus Vaccine Quad .5 mL IM 6+ MO 2019-07-11 00:00:00 Completed [facility] Influenza Virus Vaccine Quad .5 mL IM 6+ MO 2019-07-11 00:00:00 Completed [facility] Influenza Virus Vaccine Quad .5 mL IM 6+ MO 2019-07-11 00:00:00 Completed [facility] Influenza Virus Vaccine Quad .5 mL IM 6+ MO 2019-07-11 00:00:00 Completed [facility] Influenza Virus Vaccine Quad .5 mL IM 6+ MO 2019-07-11 00:00:00 Completed [facility] Influenza Virus Vaccine Quad IM, Preserv and ABX Free 6 MO-64 YRS 2018-06-22 00:00:00 Completed [facility] Influenza Virus Vaccine Quad IM, Preserv and ABX Free 6 MO-64 YRS 2018-06-22 00:00:00 Completed [facility] Influenza Virus Vaccine Quad IM, Preserv and ABX Free 6 MO-64 YRS 2018-06-22 00:00:00 Completed [facility] Influenza Virus Vaccine Quad IM, Preserv and ABX Free 6 MO-64 YRS 2018-06-22 00:00:00 Completed [facility] Influenza Virus Vaccine Quad IM, Preserv and ABX Free 6 MO-64 YRS 2018-06-22 00:00:00 Completed [facility] Influenza Virus Vaccine Quad IM, Preserv and ABX Free 6 MO-64 YRS 2018-06-22 00:00:00 Completed [facility] Influenza Virus Vaccine Quad IM, Preserv and ABX Free 6 MO-64 YRS 2018-06-22 00:00:00 Completed [facility] Influenza Virus Vaccine Quad IM, Preserv and ABX Free 6 MO-64 YRS 2018-06-22 00:00:00 Completed [facility] Influenza Virus Vaccine Quad IM, Preserv and ABX Free 6 MO-64 YRS 2018-06-22 00:00:00 Completed [facility] Influenza Virus Vaccine Quad IM, Preserv and ABX Free 6 MO-64 YRS 2018-06-22 00:00:00 Completed [facility] Influenza Virus Vaccine Quad IM, Preserv and ABX Free 6 MO-64 YRS 2018-06-22 00:00:00 Completed [facility] TDAP 2017-10-14 00:00:00 Completed [facility] TDAP 2017-10-14 00:00:00 Completed [facility] TDAP 2017-10-14 00:00:00 Completed [facility] TDAP 2017-10-14 00:00:00 Completed [facility] TDAP 2017-10-14 00:00:00 Completed [facility] TDAP 2017-10-14 00:00:00 Completed [facility] TDAP 2017-10-14 00:00:00 Completed [facility] TDAP 2017-10-14 00:00:00 Completed [facility] TDAP 2017-10-14 00:00:00 Completed [facility] TDAP 2017-10-14 00:00:00 Completed [facility] TDAP 2017-10-14 00:00:00 Completed [facility] Tdap- (Boostrix, Adacel) Unknown Completed Mana Bill - External DTaP Unknown Completed Mana velázquez - External Covid-19 Vaccine ([employer]), Mrna-lnp, Michael Protein, Pf, 30mcg/0.3ml,IM Unknown Completed Mana encarnacion - External Influenza, Injectable, Mdck, Preservative Free, Quadrivalent Unknown Completed Mana Seybold - External Influenza, Injectable, Mdck, Preservative Free, Quadrivalent Unknown Completed Mana Rigginsold - External Influenza Virus Vaccine, No Preserv, age 6 months and up Unknown Completed Mana Rigginsold - External Tdap- (Boostrix, Adacel) Unknown Completed Mana Rigginsold - External DTaP Unknown Completed Mana Se bold - External Covid-19 Vaccine ([employer]), Mrna-lnp, Michael Protein, Pf, 30mcg/0.3ml,IM Unknown Completed Mana Rigginsol d - External Influenza, Injectable, Mdck, Preservative Free, Quadrivalent Unknown Completed Mana Seybold - External Influenza, Injectable, Mdck, Preservative Free, Quadrivalent Unknown Completed Mana Rigginsold - External Influenza Virus Vaccine, No Preserv, age 6 months and up Unknown [facility]- (Boostrix, Adacel) Unknown Completed Mana old - External DTaP Unknown Completed [facility] bold - External Covid-19 Vaccine ([employer]), Mrna-lnp, Michael Protein, Pf, 30mcg/0.3ml,IM Unknown Completed Mana Odomol d - External Influenza, Injectable, Mdck, Preservative Free, Quadrivalent Unknown Completed Mana Rigginsybold - External Influenza, Injectable, Mdck, Preservative Free, Quadrivalent Unknown Completed Mana Rigginsold - External Influenza Virus Vaccine, No Preserv, age 6 months and up Unknown Completed [facility] - External Tdap- (Boostrix, Adacel) Unknown Completed Mana Rigginsold - External DTaP Unknown Completed [facility] bold - External Covid-19 Vaccine ([employer]), Mrna-lnp, Michael Protein, Pf, 30mcg/0.3ml,IM Unknown Completed Mana Odomol d - External Influenza, Injectable, Mdck, Preservative Free, Quadrivalent Unknown Completed Mana Seybold - External Influenza, Injectable, Mdck, Preservative Free, Quadrivalent Unknown Completed Mana Rigginsold - External Influenza Virus Vaccine, No Preserv, age 6 months and up Unknown Completed Mana old - External Tdap- (Boostrix, Adacel) Unknown Completed Mana ybold - External DTaP Unknown Completed [facility] bold - External Covid-19 Vaccine ([employer]), Mrna-lnp, Michael Protein, Pf, 30mcg/0.3ml,IM Unknown Completed Mana Odomol d - External Influenza, Injectable, Mdck, Preservative Free, Quadrivalent Unknown Completed Mana Seybold - External Influenza, Injectable, Mdck, Preservative Free, Quadrivalent Unknown Completed Mana Rigginsold - External Influenza Virus Vaccine, No Preserv, age 6 months and up Unknown Completed Mana Seold - External Tdap- (Boostrix, Adacel) [facility] Com[facility] Mana Se bold - External Covid-19 Vaccine ([employer]), Mrna-lnp, Michael Protein, Pf, 30mcg/0.3ml,IM Unknown Completed Mana Odomol d - External Influenza, Injectable, Mdck, Preservative Free, Quadrivalent Unknown Completed Mana Rigginsold - External Influenza, Injectable, Mdck, Preservative Free, Quadrivalent Unknown [facility] Influenza Virus Vaccine, No Preserv, age 6 months and up Unknown [facility]- (Boostrix, Adacel) Unknown Completed [facility] - External DTaP Unknown Completed [facility] bold - External Covid-19 Vaccine ([facility]), Mrna-lnp, Michael Protein, Pf, 30mcg/0.3ml,IM Unknown Completed Mana Odomol d - External Influenza, Injectable, Mdck, Preservative Free, Quadrivalent Unknown [facility] Influenza, Injectable, Mdck, Preservative Free, Quadrivalent Unknown Completed [facility] - External Influenza Virus Vaccine, No Preserv, age 6 months and up Unknown Completed [facility] - External Influenza Virus Vaccine Quad .5 mL IM 6+ MO (FLUZONE/FLULAVAL/F LUARIX) Unknown Completed [facility] Influenza Virus Vaccine Quad IM, Preserv and ABX Free 6 MO-64 YRS (FLUCELVAX) Unknown Completed [facility] DTAP Unknown Completed [facility] SARS-COV-2 COVID-19 PFIZER VACCINE Unknown Completed [facility] TDAP Unknown Completed [facility] Influenza Virus Vaccine Quad .5 mL IM 6+ MO (FLUZONE/FLULAVAL/F LUARIX) Unknown Completed [facility] Influenza Virus Vaccine Quad IM, Preserv and ABX Free 6 MO-64 YRS (FLUCELVAX) Unknown Completed [facility] DTAP Unknown Completed [facility] SARS-COV-2 COVID-19 PFIZER VACCINE Unknown Completed [facility] TDAP Unknown Completed [facility] Vital Signs Vital Name Observation Time Observation Value Comments S ource Systolic blood pressure 2024-02-10 20:04:00 109 mm[Hg] Mana Seybo ld - External Diastolic blood pressure 2024-02-10 20:04:00 68 mm[Hg] Mana Seybo ld - External Heart rate 2024-02-10 20:04:00 80 /min Kelse y Seybold - External Respiratory rate 2024-02-10 20:04:00 16 /min Mana Seybold - External Body height 2024-02-10 20:04:00 182.9 cm Diamante ey Seybold - External Body weight 2024-02-10 20:04:00 140.615 kg Diamante ey Seybold - External BMI 2024-02-10 20:04:00 42.04 kg/m2 Diamante ey Seybold - External Systolic blood pressure 2024-01-29 20:20:00 122 mm[Hg] Mana Seybo ld - External Diastolic blood pressure 2024-01-29 20:20:00 67 mm[Hg] Mana Seybo ld - External Heart rate 2024-01-29 20:20:00 85 /min Kelse y Seybold - External Body temperature 2024-01-29 20:20:00 36.61 Katelyn Mana Seybold - External Respiratory rate 2024-01-29 20:20:00 16 /min Mana Seybold - External Body height 2024-01-29 20:20:00 182.9 cm Diamante ey Seybold - External Body weight 2024-01-29 20:20:00 141.976 kg Diamante ey Seybold - External BMI 2024-01-29 20:20:00 42.45 kg/m2 Diamante ey Seybold - External Oxygen saturation in Arterial blood by Pulse oximetry 2024-01-29 20:20:00 100 /min Mana Seybo ld - External Systolic blood pressure 2023-09-10 22:07:00 116 mm[Hg] Mana Odomo ld - External Diastolic blood pressure 2023-09-10 22:07:00 68 mm[Hg] Mana Rigginsybo ld - External Heart rate 2023-09-10 22:07:00 94 /min Bobbyse y Seybold - External Respiratory rate 2023-09-10 22:07:00 16 /min Mana Rigginsybold - External Body height 2023-09-10 22:07:00 182.9 cm Diamante ey Seybold - External Body weight 2023-09-10 22:07:00 143.337 kg Diamante ey Seybold - External BMI 2023-09-10 22:07:00 42.86 kg/m2 Diamante brewer Seybold - External Oxygen saturation in Arterial blood by Pulse oximetry 2023-09-10 22:07:00 99 /min Mana Odomo ld - External Systolic blood pressure 2023-07-31 20:58:00 112 mm[Hg] Mana Rigginsybo ld - External Diastolic blood pressure 2023-07-31 20:58:00 66 mm[Hg] Mana Odomo ld - External Heart rate 2023-07-31 20:58:00 89 /min Iva pearl Seybold - External Body temperature 2023-07-31 20:58:00 36.72 Katelyn Mana Rigginsybold - External Respiratory rate 2023-07-31 20:58:00 14 /min Mana Rigginsybold - External Body height 2023-07-31 20:58:00 182.9 cm Diamante brewer Seybold - External Body weight 2023-07-31 20:58:00 139.708 kg Diamante brewer Seybold - External BMI 2023-07-31 20:58:00 41.77 kg/m2 Diamante ey Seybold - External Systolic blood pressure 2022-10-29 18:08:00 118 mm[Hg] [facility] Diastolic blood pressure 2022-10-29 18:08:00 74 mm[Hg] [facility] Heart rate 2022-10-29 18:08:00 92 /min [facility] Body temperature 2022-10-29 18:08:00 36.72 Katelyn [facility] Respiratory rate 2022-10-29 18:08:00 18 /min [facility] Body height 2022-10-29 18:08:00 182.9 cm [facility] 2022-10-29 18:08:00 137.939 kg [facility] BMI 2022-10-29 18:08:00 41.24 kg/m2 [facility] Systolic blood pressure 2022-09-19 13:56:00 114 mm[Hg] [facility] Diastolic blood pressure 2022-09-19 13:56:00 76 mm[Hg] [facility] Heart rate 2022-09-19 13:56:00 80 /min [facility] height 2022-09-19 13:56:00 182.9 cm [facility] Body weight 2022-09-19 13:56:00 137.667 kg [facility] BMI 2022-09-19 13:56:00 41.16 kg/m2 [facility] Oxygen saturation in Arterial blood by Pulse oximetry 2022-09-19 13:56:00 100 /min [facility] Systolic blood pressure 2022-09-16 19:03:00 113 mm[Hg] [facility] Diastolic blood pressure 2022-09-16 19:03:00 75 mm[Hg] [facility] Heart rate 2022-09-16 19:03:00 92 /min [facility] Body temperature 2022-09-16 19:03:00 36.83 Katelyn [facility] Respiratory rate 2022-09-16 19:03:00 18 /min [facility] Body height 2022-09-16 19:03:00 182.9 cm [facility] weight 2022-09-16 19:03:00 138.971 kg [facility] BMI 2022-09-16 19:03:00 41.55 kg/m2 [facility] Oxygen saturation in Arterial blood by Pulse oximetry 2022-09-16 19:03:00 98 /min [facility] Systolic blood pressure 2022-07-28 19:35:00 100 mm[Hg] [facility] Diastolic blood pressure 2022-07-28 19:35:00 68 mm[Hg] [facility] Heart rate 2022-07-28 19:35:00 93 /min Unive [facility] Body temperature 2022-07-28 19:35:00 36.72 Katelyn [facility] Respiratory rate 2022-07-28 19:35:00 20 /min [facility] Body height 2022-07-28 19:35:00 180.3 cm [facility] Body weight 2022-07-28 19:35:00 141.341 kg [facility] BMI 2022-07-28 19:35:00 43.46 kg/m2 [facility] Systolic blood pressure 2022-01-13 15:11:00 112 mm[Hg] [facility] Diastolic blood pressure 2022-01-13 15:11:00 77 mm[Hg] [facility] Heart rate 2022-01-13 15:11:00 85 /min Unive [facility] Body height 2022-01-13 15:11:00 180.3 cm [facility] Body weight 2022-01-13 15:11:00 131.226 kg [facility] BMI 2022-01-13 15:11:00 40.35 kg/m2 [facility] Oxygen saturation in Arterial blood by Pulse oximetry 2022-01-13 15:11:00 100 /min [facility] Procedures Procedure Date / Time Performed Performing Clinician Source CONSENT FOR CONTRACEPTION 2022-10-29 05:01:00 Doctor Unassigned, [place] [facility] POCT TEST 2022-10-29 00:00:00 Tori Hoyt [facility] PATIENT FINANCIAL POLICY 2022-09-16 18:59:12 Doctor Unassigned, [place] [facility] ASSIGNMENT OF BENEFITS 2022-07-28 19:08:50 Docto r Unassigned, [place] [facility] Encounters Start Date/Time End Date/Time Encounter Type Admission Type Attending Clinicians Care Facility Care Department Encounter ID Source 2021-05-03 01:02:02 Outpatient P [facility] [id number] [facility] 2024-08-15 14:30:00 2024-08-15 14:30:00 Outpatient VINNY ERICKSON [id number] [facility] 2024-05-02 15:00:00 2024-05-02 15:00:00 Outpatient VINNY ERICKSON [id number] [facility] 2024-03-01 00:00:00 2024-03-01 00:00:00 Outpatient SIMON HUNTER [id number] [facility] 2024-02-20 00:00:00 2024-02-20 00:00:00 Outpatient SIMON HUNTER [id number] [facility] 2024-02-10 15:15:00 2024-02-10 15:15:00 Outpatient SIMON HUNTER [id number] [facility] 2024-01-29 15:30:00 2024-01-29 15:30:00 Outpatient [facility]ISE[facility] REDDING [id number] [facility] 2024-01-09 07:35:00 2024-01-09 07:35:00 Outpatient DIVINE SANCHES [id number] [facility] 2023-11-09 14:30:00 2023-11-09 14:30:00 Outpatient VINNY ERICKSON [id number] [facility] 2023-10-30 15:30:00 2023-10-30 15:30:00 Outpatient DARNELL MOSLEY MANA RIOS [id number] [facility] 2023-10-30 11:30:00 2023-10-30 11:30:00 Outpatient AZRA ISRAEL [id number] [facility] 2023-10-23 15:00:00 2023-10-23 15:00:00 Outpatient BETH BOLDEN [id number] [facility] 2023-10-20 09:30:00 2023-10-20 09:30:00 Outpatient VINNY ERICKSON [id number] [facility] 2023-10-09 16:30:00 2023-10-09 16:30:00 Outpatient BETH BOLDEN MANA MANA [id number] [facility] 2023-09-24 09:00:00 2023-09-24 09:00:00 Outpatient LAB90 MANA RIOS [id number] [facility] 2023-09-10 16:30:00 2023-09-10 16:30:00 Outpatient BETH BOLDEN MANA RIOS [id number] [facility] 2023-08-13 00:00:00 2023-08-13 00:00:00 Outpatient AMARAYoselyn DIPIKA MANA RIOS [id number] [facility] 2023-08-11 14:00:00 2023-08-11 14:00:00 Outpatient MANA RIOS [id number] [facility] 2023-08-11 09:20:00 2023-08-11 09:20:00 Outpatient MANA RIOS [id number] [facility] 2023-08-06 00:00:00 2023-08-06 00:00:00 Outpatient BETH PATEL MANA RIOS [id number] [facility] 2023-07-31 15:50:00 2023-07-31 15:50:00 Outpatient LAB90 MANA RIOS [id number] [facility] 2023-07-31 15:00:00 2023-07-31 15:00:00 Outpatient TRISTINDIPIKA MANA RIOS [id number] [facility] 2023-07-25 12:15:00 2023-07-25 12:15:00 Outpatient LAUREN RGLauro RIOS [id number] [facility] 2023-04-06 10:30:00 2023-04-06 10:30:00 Outpatient R [facility] [id number] [facility] 2023-01-21 13:30:00 2023-01-21 13:30:00 Outpatient R FELIPE HOYT CHERYAL [facility] [id number] [facility] 2023-01-18 00:00:00 2023-01-18 00:00:00 Refill Felipe Hoyt [facility] 1.2840.114 350.1.13.10 4.2.7.2.686 [id number] [facility] 2023-01-01 00:00:00 2023-01-01 00:00:00 Telephone Earnestine Elliott [facility] 1.840.114 350.1.13.10 4.2.7.2.686 [id number] [facility] 2022-11-20 00:00:00 2022-11-20 00:00:00 [facility] 1.0.114 350.1.13.10 4.2.7.2.686 [id number] [facility] 2022-10-29 13:00:00 2022-10-29 13:26:57 Outpatient [facility] [id number] [facility] 2022-10-29 13:00:00 2022-10-29 13:26:57 [facility] 1.0.114 350.1.13.10 4.2.7.2.686 [id number] [facility] 2022-10-29 00:00:00 2022-10-29 00:00:00 Orders Only Doctor Unassigned, [place] [facility] 1.2840.114 350.1.13.10 4.2.7.2.686 [id number] [facility] 2022-10-28 13:00:00 2022-10-28 13:00:00 Outpatient R RENEE JOINER [facility] [id number] [facility] 2022-10-15 00:00:00 2022-10-15 00:00:00 Patient Secure Msg Doctor Unassigned, [place] [facility] 1.2840.114 350.1.13.10 4.2.7.2.686 [id number] [facility] 2022-09-19 09:00:00 2022-09-19 09:31:11 Outpatient R EARNESTINE ELLIOTT [facility] [id number] [facility] 2022-09-19 09:00:00 2022-09-19 09:31:11 Office Visit Earnestine Elliott COUNTS INCLUDE 234 BEDS AT THE [facility] 1.84.114 350.1.13.10 4.2.7.2.686 [id number] [facility] 2022-09-16 14:00:00 2022-09-16 14:20:00 Urgent Care Denis Copeland Unknown, Attending COUNTS INCLUDE 234 BEDS AT THE [facility] 1.84.114 350.1.13.10 4.2.7.2.686 [id number] [facility] 2022-09-16 14:00:00 2022-09-16 14:00:00 Outpatient R DENIS COPELAND [facility] [id number] [facility] 2022-09-16 00:00:00 2022-09-16 00:00:00 Orders Only Doctor Unassigned, [place] [facility] 1.114 350.1.13.10 4.2.7.2.686 [id number] [facility] 2022-09-05 00:00:00 2022-09-05 00:00:00 Telephone Renee Joiner [facility] 1.84.114 350.1.13.10 4.2.7.2.686 [id number] [facility] 2022-07-28 13:30:00 2022-07-28 14:03:10 Outpatient R LIBERTYBILLYRENEE FLORES [facility] [id number] [facility] 2022-07-28 13:30:00 2022-07-28 14:03:10 Office Visit Renee Joiner [facility] 1.2.840.114 350.1.13.10 4.2.7.2.686 [id number] [facility] 2022-07-28 00:00:00 2022-07-28 00:00:00 Orders Only Doctor Unassigned, [place] [facility] 1.2.840.114 350.1.13.10 4.2.7.2.686 [id number] [facility] 2022-03-16 00:00:00 2022-03-16 00:00:00 Nurse Triage Glenna Alonso [facility] 1..840.114 350.1.13.10 4.2.7.2.686 [id number] [facility] 2022-02-13 13:45:00 2022-02-13 13:45:00 Outpatient R ANABELLA SULLIVAN [facility] [id number] [facility] 2022-01-17 00:00:00 2022-01-17 00:00:00 Patient Secure Msg Doctor Unassigned, [place] [facility] 1.2.840.114 350.1.13.10 4.2.7.2.686 [id number] [facility] 2022-01-13 10:00:00 2022-01-13 10:38:36 Outpatient R BETH GHOSH [facility] [id number] [facility] 2022-01-13 10:00:00 2022-01-13 10:38:36 Office Visit Beth Ghosh COUNTS INCLUDE 234 BEDS AT THE [facility] 1.2.840.114 350.1.13.10 4.2.7.2.686 [id number] [facility] 2022-01-13 10:00:00 2022-01-13 10:38:36 Outpatient R BETH GHOSH [facility] [id number] [facility] 2021-12-05 15:30:00 2021-12-05 15:45:00 Ski Topper Visit 2, [facility] 1.2.840.114 350.1.13.10 4.2.7.2.686 [id number] [facility] 2021-12-05 15:30:00 2021-12-05 15:30:00 Outpatient R RHYSTINYCY [facility] [id number] [facility] 2021-12-05 15:00:00 2021-12-05 15:24:09 Office Visit Renee Joiner [facility] 1.2.840.114 350.1.13.10 4.2.7.2.686 [id number] [facility] 2021-12-05 15:00:00 2021-12-05 15:24:09 Outpatient R LIBERTYBILLYRENEE FLORES [facility] [id number] [facility] 2021-09-19 15:45:00 2021-09-19 16:00:00 Ski Topper Visit 2, [facility] 1.2.840.114 350.1.13.10 4.2.7.2.686 [id number] [facility] 2021-09-19 15:00:00 2021-09-19 15:42:48 [id number] 2021-09-19 15:00:00 2021-09-19 15:42:48 [facility] 1..840.114 350.1.13.10 4.2.7.2.686 [id number] [facility] 2021-09-19 15:00:00 2021-09-19 15:42:48 [id number] 2021-07-25 11:15:00 2021-07-25 11:15:00 Ski Topper Visit 2, Adc Lab Rhys [facility] 1.840.114 350.1.13.10 4.2.7.2.686 [id number] [facility] 2021-07-25 10:30:00 2021-07-25 11:08:26 [facility] [id number] [facility] 2021-07-25 10:30:00 2021-07-25 11:08:26 [facility] 1..840.114 350.1.13.10 4.2.7.2.686 [id number] [facility] 2021-07-25 10:30:00 2021-07-25 11:08:26 [facility] [id number] [facility] 2021-07-25 00:00:00 2021-07-25 00:00:00 Orders Only Doctor Unassigned, [place] [facility] 1.84.114 350.1.13.10 4.2.7.2.686 [id number] [facility] 2021-03-17 00:00:00 2021-03-17 00:00:00 Nurse Triage Madalyn Crockett [facility] 1..114 350.1.13.10 4.2.7.2.686 [id number] [facility] 2021-02-26 15:09:07 2021-02-26 23:59:00 [facility] 1.2.840.114 350.1.13.10 4.2.7.2.686 [id number] [facility] 2021-02-26 14:41:58 2021-02-26 15:17:01 Urgent Care [facility] 1.2.840.114 350.1.13.10 4.2.7.2.686 [id number] [facility] 2021-02-26 15:00:00 2021-02-26 15:00:00 Outpatient R NELLY REDDING [facility] [id number] [facility] 2021-02-20 09:45:00 2021-02-20 09:45:00 Outpatient R NELL SULLIVAN [facility] [id number] [facility] 2020-09-16 11:00:00 2020-09-16 11:00:00 Outpatient R NELL SULLIVAN [facility] [id number] [facility] 2020-07-25 13:00:00 2020-07-25 13:00:00 Outpatient R RENEE JOINER [facility] [id number] [facility] 2020-01-24 14:00:00 2020-01-24 14:00:00 Outpatient R [facility] [id number] [facility] 2020-01-23 13:00:00 2020-01-23 13:00:00 Outpatient R KAIT DIETRICH [facility] [id number] [facility] 2020-01-02 08:00:00 2020-01-02 08:00:00 Outpatient R NELL SULLIVAN [facility] [id number] [facility] 2019-12-19 10:45:00 2019-12-19 10:45:00 Outpatient R [facility] [id number] [facility] 2019-12-12 09:15:00 2019-12-12 09:15:00 Outpatient Tavares KAIT DIETRICH [facility] [id number] [facility] 2019-12-05 13:00:00 2019-12-05 13:00:00 Outpatient R [facility] [id number] [facility] 2019-12-02 16:15:00 2019-12-02 16:15:00 Outpatient Tavares JOINER RENEE [facility] [id number] [facility] 2019-12-02 11:30:00 2019-12-02 11:30:00 Outpatient Tavares JOINER RENEE [facility] [id number] [facility] 2019-11-22 15:30:00 2019-11-22 15:30:00 Outpatient Tavares DIETRICHKAIT [facility] [id number] [facility] 2019-11-15 13:30:00 2019-11-15 13:30:00 Outpatient Tavares DIETRICHKAIT [facility] [id number] [facility] 2019-10-31 14:15:00 2019-10-31 14:15:00 Outpatient Tavares JOINER RENEE [facility] [id number] [facility] 2019-10-17 16:15:00 2019-10-17 16:15:00 Outpatient Tavares DIETRICH KAIT [facility] [id number] [facility] 2019-10-03 15:45:00 2019-10-03 15:45:00 Outpatient Tavares JOINER RENEE [facility] [id number] [facility] 2019-09-05 15:30:00 2019-09-05 15:30:00 Outpatient Tavares DIETRICH KAIT [facility] [id number] [facility] 2019-07-11 11:00:00 2019-07-11 13:03:49 Outpatient MAXWELL MAYEREN [facility] [id number] [facility] Results Test Description Test Time Test Comments Results Result Co [facility]ments [id number]00* Test Item Value Reference Range Interpretation Comme nts POCT PREG (test code = 1605) Negative On board controls acceptable with C Line (test code = 3574) Yes POCT PREG LOT # (test code = 3575) POCT PREG TEST DATE ( test code = 3576) [facility] Notes Date/Time Note Provider Source 2024-02-10 15:08:18 Chief Complaint Patient presents with Well Woman Exam [facility] 2023-09-10 16:18:54 Chief Complaint Patient presents with Physical Patient is not fasting for labs. Concerned about weight Kandice Ramsey LVN [facility] 2023-07-31 15:05:07 Chief Complaint Patient presents with Breast Pain Left breast pain and swelling on Jul 23. The pain has subsided but still has the lump under nipple area. She was given Amoxicillin via telemedicine but did not take them due to pain subsiding. Gaby David MA II [facility]
[2024-06-06 13:56] LABS: Absolute Lymphocytes (CBC) 0.7 K/uL (0.7-4.9); Absolute Monocytes 0.7 K/uL (0.1-1.3); Absolute Neutrophil 4.5 K/uL (1.8-8.0); Basophils % 0.2 % (0-1.3); Eosinophils % 0.4 % (0-4.4); Hematocrit 41.4 % (36.0-45.0); Hemoglobin 14.1 g/dL (12.0-15.0); Lymphocytes % 11.4 % (15.3-44.8); MCH 31.1 pg (27.0-35.0); MCHC 34.1 g/dL (32.0-36.0); MCV 91.1 fL (80-100); MPV 6.8 fL (7.6-11.3); Monocytes % 11.7 % (3.3-12.3); Neutrophils % 76.3 % (41.7-73.7); Nucleated Red Blood Cells % 0.1 % (0-0); Platelets 266 thou/uL (152-406); RBC Red Blood Cell Count 4.55 M/uL (3.86-4.86); Red Cell Distribution Width 12.7 % (12.1-15.2)
[2024-06-06 14:17] LABS: Anion Gap 8.4 mEq/L (5.0-15.0); BUN Blood Urea Nitrogen 10 mg/dL (7-18); Bicarbonate 25 mEq/L (21-32); Glomerular Filtration Rate 119 ml/min (=/>90); Glucose Level 110 mg/dL (74-106); Potassium 3.4 mEq/L (3.5-5.1); Sodium Level 136 mEq/L (136-145)
[2024-06-06 14:25] LABS: Troponin High Sensitivity < 3.0 pg/mL (<58.9)
[2024-06-06] MEDS ORDERED: KETOROLAC 30 MG/ML INJ ONE (15:17)
[2024-06-06] MEDS ORDERED: ACETAMINOPHEN 500 MG TAB ONE (15:18)
[2024-06-06] MEDS ORDERED: NA CHLORIDE 0.9% 1,000 ML ONE (15:18)
--- NOTE | 2024-06-06 15:31 | EDPHYS ---
Physician Documentation [facility] Name: Edelmira Rollins Age: 33 yrs Sex: Female : 1990 Arrival Date: 06/06/2024 Time: 12:34 Bed 9 Private MD: ED Physician Prieto Irizarry HPI: 06/06 13:49 This 33 yrs old Female presents to ER via Ambulatory with complaints of ec2 Fever, Sore Throat, Cough. 13:49 Patient arrives today for evaluation of upper respiratory symptoms. Reports she has ec2 been having cough and congestion as well as sore throat. Was seen urgent care, negative for COVID as well as strep throat. Patient reports that she has been feeling generally unwell with fatigue and bodyaches.. Historical: - Allergies: 12:55 No Known Allergies; aa5 - PMHx: 12:55 Depressive disorder; aa5 - PSHx: 12:55 None; aa5 - Immunization history:: Adult Immunizations unknown. - Infectious Disease History:: Denies. - Social history:: Smoking status: Patient denies any tobacco usage or history of. ROS: 13:49 Constitutional: as per hpi ec2 Exam: 13:49 Constitutional: GEN: NAD Head: atraumatic Eyes: EOMI Ears: External ears are ec2 normal. CV: regular rate LUNGS: no respiratory distress, no wheezes or rales or rhonchi ABD: non-distended SKIN: no evidence of rashes MSK: no evidence of trauma Vital Signs: 12:52 BP 132 / 89; Pulse 116; Resp 18 S; Temp 99.2(O); Pulse Ox 100% on R/A; aa5 15:30 BP 123 / 77; Pulse 101; Resp 18; Pulse Ox 98% on R/A; Pain 4/10; iw 15:30 Pain Scale: Adult iw MDM: 12:52 Medical Screening Exam initiated ec2 13:49 Data reviewed: vital signs, nurses notes. ED course: Patient arrives today for ec2 evaluation of upper respiratory symptoms. Examination is revealing for well-appearing nontoxic dividual's otherwise in no acute distress with a reassuring examination. Will obtain lab work, EKG, influenza swab as well as chest x-ray. Suspect viral infection.. 13:50 ED course: EKG obtained, independently reviewed and interpreted by me, shows sinus ec2 tachycardia, rate of 106, no acute ST segment elevations, intervals are nonactionable.. 15:31 ED course: Metabolic profile shows slight hypokalemia. CBC reassuring. Flu testing is ec2 negative. Troponin within normal ranges. Suspect viral process, will have the patient follow-up PCP. Return precautions given.. 12 13:00 Order name: Basic Metabolic Panel; Complete Time: 15:30 ec2 06/06 13:00 Order name: CBC with Diff; Complete Time: 15:30 ec2 06/06 13:00 Order name: Troponin HS; Complete Time: 15:30 ec2 06/06 13:00 Order name: Influenza Screen (a \T\ B); Complete Time: 15:30 ec2 06/06 13:00 Order name: XRAY Chest (1 view) ec2 06/06 13:00 Order name: Cardiac monitoring ec2 06/06 13:00 Order name: EKG - Nurse/Tech; Complete Time: 13:41 ec2 06/06 13:00 Order name: IV Saline Lock; Complete Time: 13:41 ec2 06/06 13:00 Order name: Labs collected and sent; Complete Time: 13:41 ec2 06/06 13:00 Order name: O2 Per Protocol; Complete Time: 15:29 ec2 06/06 13:00 Order name: O2 Sat Monitoring; Complete Time: 15:29 ec2 Administered Medications: 15:29 Drug: Acetaminophen PO 1000 mg PO once Route: PO; iw 16:10 Follow up: Response: No adverse reaction iw 15:29 Drug: Ketorolac IVP 15 mg IVP once Route: IVP; Site: left antecubital; iw 15:50 Follow up: Response: No adverse reaction iw 15:29 Drug: NS 0.9% IV 500 ml 500 ml IV at 1 bolus once; to be given as a bolus over 30 iw minutes Volume: 500 ml; Route: IV; Rate: 1 bolus; Site: left antecubital; 16:10 Follow up: IV Status: Completed infusion iw Disposition Summary: 06/06/24 15:31 Discharge Ordered Notes: Location: Home ec2 Condition: Stable ec2 Diagnosis - Viral infection, unspecified ec2 Followup: ec2 - With: Private Physician - When: - Reason: Re-evaluation by your physician Discharge Instructions: - Discharge Summary Sheet ec2 - Viral Illness, Adult ec2 Forms: - Medication Reconciliation Form ec2 - Antibiotic Education ec2 - Prescription Opioid Use ec2 - Patient Portal Instructions ec2 - Leadership Thank You Letter ec2 Prescriptions: - Prednisone 20 mg Oral Tablet - take 2 tablets ORAL route once daily for 5 days; 10 tablet; Refills: 0, Product ec2 Selection Permitted Signatures: Dispatcher [employer] Kylie Carrington RN RN iw Nereida Fernando RN RN aa5 Prieto Irizarry MD MD ec2 Corrections: (The following items were deleted from the chart) 12:56 12:55 PMHx: None; aa5 aa5 13:00 13:00 Chest Single View+RAD.[email or web address] ordered. HANS MAXWELL
--- NOTE | 2024-06-06 15:31 | ER ---
Nurse's Notes [facility] Name: Edelmira Rollins Age: 33 yrs Sex: Female : 1990 Arrival Date: 06/06/2024 Time: 12:34 Bed 9 Private MD: Diagnosis: Viral infection, unspecified Presentation: 06/06 12:52 Chief complaint: Patient states: chills, sore throat, cough, body aches that began last aa5 night. Pt states "I went to urgent care today and they told me covid was negative and strep was negative". Pt reports symptoms began after eating a steak salad. Coronavirus screen: cough unrelated to allergies. Ebola Screen: Patient denies travel to an Ebola-affected area in the 21 days before illness onset. Initial Sepsis Screen: Does the patient meet any 2 criteria? HR > 90 bpm. Does the patient have a suspected source of infection? No. Patient's initial sepsis screen is negative. Risk Assessment: Do you want to hurt yourself or someone else? Patient reports no desire to harm self or others. Onset of symptoms was June 2024. 12:52 Method Of Arrival: Ambulatory aa5 12:52 Acuity: STEPHANIE 3 aa5 Historical: - Allergies: 12:55 No Known Allergies; aa5 - PMHx: 12:55 Depressive disorder; aa5 - PSHx: 12:55 None; aa5 - Immunization history:: Adult Immunizations unknown. - Infectious Disease History:: Denies. - Social history:: Smoking status: Patient denies any tobacco usage or history of. Screenin:00 [facility] ED Fall Risk Assessment (Adult) History of falling in the last 3 months, iw including since admission No falls in past 3 months (0 pts) Confusion or Disorientation No (0 pts). Abuse screen: Denies threats or abuse. 13:00 [facility] ED Fall Risk Assessment (Adult) Intoxicated or Sedated No (0 pts) Impaired iw Gait No (0 pts) Mobility Assist Device Used No (0 pt) Altered Elimination No (0 pt) Score/Fall Risk Level 0 - 2 = Low Risk. Nutritional screening: No deficits noted. Tuberculosis screening: No symptoms or risk factors identified. Assessment: 15:30 General: Appears in no apparent distress. Behavior is calm, cooperative. Pain: iw Complains of pain in throat Pain does not radiate. Pain began. Neuro: Level of Consciousness is awake, alert, obeys commands, Oriented to person, place, time, situation. Cardiovascular: Patient's skin is warm and dry. Respiratory: Respiratory effort is even, unlabored, Respiratory pattern is regular, symmetrical. Derm: Skin is intact, is healthy with good turgor. Musculoskeletal: Range of motion: intact in all extremities. Vital Signs: 12:52 BP 132 / 89; Pulse 116; Resp 18 S; Temp 99.2(O); Pulse Ox 100% on R/A; aa5 15:30 BP 123 / 77; Pulse 101; Resp 18; Pulse Ox 98% on R/A; Pain 4/10; iw 15:30 Pain Scale: Adult iw ED Course: 12:38 Patient arrived in ED. mg5 12:39 Prieto Irizarry MD is Attending Physician. ec2 12:39 Attending Physician role handed off by Prieto Irizarry MD ms3 12:39 Luis Antonio Gleason DO is Attending Physician. ms3 12:41 Attending Physician role handed off by Luis Antonio Gleason DO ec2 12:41 Prieto Irizarry MD is Attending Physician. ec2 12:51 Arm band placed on. aa5 12:54 Triage completed. aa5 13:41 Influenza Screen (a \\T\\ B) Sent. bc6 13:41 Basic Metabolic Panel Sent. bc6 13:41 CBC with Diff Sent. bc6 13:41 Troponin HS Sent. bc6 13:42 Initial lab(s) drawn, by ri, sent to lab. Inserted saline lock: 20 gauge in left bc6 antecubital area, using aseptic technique. Blood collected. Flushed with 10 mL NS. 14:43 XRAY Chest (1 view) In Process Unspecified. EDMS 15:18 Kylie Solorio, RN is Primary Nurse. iw 16:18 No provider procedures requiring assistance completed. iw Administered Medications: 15:29 Drug: Acetaminophen PO 1000 mg PO once Route: PO; iw 16:10 Follow up: Response: No adverse reaction iw 15:29 Drug: Ketorolac IVP 15 mg IVP once Route: IVP; Site: left antecubital; iw 15:50 Follow up: Response: No adverse reaction iw 15:29 Drug: NS 0.9% IV 500 ml 500 ml IV at 1 bolus once; to be given as a bolus over 30 iw minutes Volume: 500 ml; Route: IV; Rate: 1 bolus; Site: left antecubital; 16:10 Follow up: IV Status: Completed infusion iw Medication: 16:18 VIS not applicable for this client. iw Outcome: 15:31 Discharge ordered by . ec2 16:19 Discharged to home ambulatory, iw 16:19 Condition: good 16:19 Discharge instructions given to patient, Instructed on discharge instructions, follow up and referral plans. medication usage, Demonstrated understanding of instructions, follow-up care, medications, Prescriptions given X 1, 16:20 Patient left the ED. iw Signatures: Dispatcher [employer] Kylie Carrington RN RN iw Nereida Fernando RN RN aa5 Luis Antonio Gleason DO DO ms3 Ember Zhu 6 Spring Yancey 5 Prieto Irizarry MD MD ec2 Corrections: (The following items were deleted from the chart) 12:54 12:52 Chief complaint: Patient states: chills, cough, body aches that began last night. aa5 Pt states "I went to urgent care today and they told me covid was negative and strep was negative". Pt reports symptoms began after eating a steak salad. aa5 12:56 12:55 PMHx: None; aa5 aa5 12:57 12:52 Acuity: STEPHANIE 4 aa5 aa5
--- NOTE | 2024-06-06 16:36 | RAD REPORT ---
EXAMINATION: ONE VIEW CHEST XR CLINICAL INDICATION: Female, 33 years old.,COUGH TECHNIQUE: Frontal chest projection is submitted. Examination is limited by patient positioning and t echnique. COMPARISON: 01/16/2016 FINDINGS: The lungs are well inflated and clear. No pneumothorax or sizable effusion. The heart is normal in s ize. Mediastinal contours are unremarkable. IMPRESSION: No acute intrathoracic abnormalities.
[2024-06-06 16:48] VITALS: TEMP 99.2
[2024-06-06 16:53] VITALS: BP 123/77; O2SAT 98
== END 2024-06-06 16:20 | disposition home or self-care (01) ==
LOC: ER 12:34
DX: B34.9 Viral infection, unspecified (principal)
CPT/HCPCS: 96361; 85025; 80048; 36415; 84484; 87804 ×2; 71045; 96374; 99284; J7030